=== PATIENT | male | born 1955 | race Caucasian/White ===

== ENCOUNTER 2024-11-17 22:03 | Emergency (ER) | payer MEDICARE ==
[~2024-11-17] VITALS: Ht 172.7 cm; Wt 94.2 kg
[2024-11-17 22:08] VITALS: BP 137/88; PULSE 89; RESP 20; TEMP 98.2; O2SAT 98
--- NOTE | 2024-11-17 22:09 | ELECTROCARDIOGRAPH REPORT ---
[facility] Test Date: 2024-11-17 Test Time: 22:07:28 Pat Name: CHRISTOPHER GOMEZ Department: EMERGENCY ROOM Patient ID: [facility]-[id number] Room: Gender: M Security Agent: : [id number] Requested By: DARIAN BRITO Order Number: [id number] Reading MD: Dr. Darian Brito Measurements Intervals [place] Rate: 61 P: 35 GA: 201 QRS: 9 QRSD: 100 T: 10 QT: 394 QTc: 397 Interpretive Statements Sinus rhythm Borderline T wave abnormalities Baseline wander in lead(s) I,II,aVR,aVF Electronically Signed On 11-17-2024 22:09:[address] Darian Brito Please click the below link to view image of tracing.
[2024-11-17 22:16] LABS: MEAN PLATELET VOLUME 7.7 FL (7.4-10.4); RED CELL DISTRIBUTION WIDTH 13.9 % (11.5-14.5)
[2024-11-17 22:36] LABS: CREATININE 1.16 MG/DL (0.60-1.10); PRO BRAIN NATRIURETIC PEPTIDE 55 PG/ML (0-125); TOTAL CARBON DIOXIDE 27.9 MMOL/L (24-32); eCRCL 60 ML/MIN; eGFR 63 ML/MIN
--- NOTE | 2024-11-17 22:49 | RADIOLOGY REPORT ---
EXAMINATION: Chest x-ray 1 view CLINICAL HISTORY: CP COMPARISON: None FINDINGS: Streaky opacities in the lower lung larios. No lobar consolidation identified. No definite pleural e ffusion or pneumothorax. The cardiomediastinal silhouette appears within normal limits. IMPRESSION: Streaky opacities in the lower lung larios may reflect atelectasis and/or developing infiltrates. Cor relate to exclude infection.
== END 2024-11-17 23:48 | disposition left against medical advice (07) ==
LOC: ER 22:04
DX: R07.89 Other chest pain (principal); Z53.21 Procedure and treatment not carried out due to patient leaving prior to being seen by health care provider
CPT/HCPCS: 36415; 71045; 80048; 83880; 84484; 85025; 93005